=== PATIENT | female | born 1940 ===

== ENCOUNTER 2022-02-06 10:05 | Outpatient (CLI) | payer MEDICARE | END 2022-02-06 10:06 | disposition home or self-care (01) | LOC: CSHMAMMO 10:05 | PROVIDERS: ATTEND Family Medicine | DX: Z12.31 Encounter for screening mammogram for malignant neoplasm of breast (principal); Z98.890 Other specified postprocedural states; Z85.3 Personal history of malignant neoplasm of breast | CPT/HCPCS: 77063; 77067 ==

== ENCOUNTER 2023-02-09 10:23 | Outpatient (CLI) | payer MEDICARE | END 2023-02-09 10:24 | disposition home or self-care (01) | LOC: CSHMAMMO 10:23 | PROVIDERS: ATTEND Family Medicine | DX: Z12.31 Encounter for screening mammogram for malignant neoplasm of breast (principal); Z85.3 Personal history of malignant neoplasm of breast; Z98.890 Other specified postprocedural states | CPT/HCPCS: 77063; 77067 ==

== ENCOUNTER 2024-02-15 10:06 | Outpatient (CLI) | payer MEDICARE | END 2024-02-15 10:07 | disposition home or self-care (01) | LOC: CSHMAMMO 10:06 | DX: Z12.31 Encounter for screening mammogram for malignant neoplasm of breast (principal); Z85.3 Personal history of malignant neoplasm of breast; Z98.890 Other specified postprocedural states | CPT/HCPCS: 77063; 77067 ==